=== PATIENT | female | born 2000 | race Caucasian/White ===

== ENCOUNTER 2020-11-01 12:06 | Outpatient (CLI) | payer OTHER, SELFPAY ==
[2020-11-06 09:21] LABS: TB Skin Test Site Left Arm
[2020-11-06 09:22] LABS: TB Skin Test Interpretation Unable to Read (Negative)
== END 2020-11-01 12:07 | disposition home or self-care (01) ==
LOC: CHSLAB 12:10
PROVIDERS: PCP Nurse Practitioner Family; Visit Provider Nurse Practitioner Family
DX: Z02.1 Encounter for pre-employment examination (principal)
CPT/HCPCS: 36415; 86580

== ENCOUNTER 2021-06-10 09:11 | Outpatient (CLI) | payer OTHER, SELFPAY ==
[2021-06-10 10:46] LABS: SARS-CoV-2 RNA PCR Positive (Negative)
== END 2021-06-10 09:12 | disposition home or self-care (01) ==
PROVIDERS: PCP Nurse Practitioner Family; Visit Provider Nurse Practitioner Family
DX: U07.1 COVID-19 (principal)
CPT/HCPCS: C9803; U0003; U0005

== ENCOUNTER 2022-07-04 14:20 | Emergency (ER) | payer OTHER, SELFPAY ==
[2022-07-04 14:33] VITALS: BP 181/123; PULSE 101; RESP 16; TEMP 36.6; O2SAT 100
--- NOTE | 2022-07-04 14:36 | ED.WOUNDLAC ---
HPI - Wound/Laceration General Chief Complaint: Wound/Laceration Stated Complaint: R HAND LACERATION Time Seen by Provider: 07/04/22 14:31 Source: patient Mode of arrival: ambulatory Limitations: no limitations History of Present Illness HPI narrative: Patient presents today complaining of a laceration to her right hand that was sustained 1 hour prior to arrival at work on her break while she was opening a can of tomatoes. She currently rates her pain 06/10. She is up-to-date on her tetanus vaccine. Denies numbness or tingling in her hand or fingers. Related Data Home Medications Medication Instructions Recorded Confirmed No Home Medications 07/04/22 07/04/22 Allergies Allergy/AdvReac Type Severity Reaction Status Date / Time No Known Allergies Allergy Verified 07/04/22 14:35 Review of Systems Review of Systems: CONSTITUTIONAL: Denies body aches, fever, chills, or sweats. EYES: Denies visual changes, redness, or discharge. ENT: Denies rhinorrhea, congestion, sore throat, or otalgia. CARDIOVASCULAR: Denies chest pain, palpitations, or edema. RESPIRATORY: Denies cough or dyspnea. GASTROINTESTINAL: Denies abdominal pain, nausea, vomiting, or diarrhea. GENITOURINARY: Denies dysuria or hematuria. SKIN: Denies rash, itching. + right hand laceration MUSCULOSKELETAL: Denies back pain, joint pain, or myalgia. NEUROLOGIC: Denies headache, numbness, tingling, or weakness. PSYCH: Denies depression or anxiety. [facility] Family History Family History Father Hypertension Father Hypertension Social History Social History Smoking status: Never smoker Alcohol intake: current Substance use: never Lack of Transportation: No Lack of Food: Never True Current Housing: I Have Housing Concerned About Future Housing: No Difficulty Paying Gas/Electric Bills: No Difficulty Paying for Meds: No Currently Unemployed: No Education: High School Diploma/GED Difficulty w/ Childcare or Family Care: No Comments At time of signature, I have reviewed and agree with nursing past medical, surgical, social and family history unless otherwise noted. Please see nursing chart for further information. There is no relevant family history pertinent to the presenting complaint Exam Narrative: GENERAL: Well-appearing, well-nourished, and in no acute distress. HEAD: Normocephalic, atraumatic. EYES: EOMI. No redness or drainage. Conjunctivae normal. ENT: Mucous membranes pink and moist. NECK: Normal AROM. CHEST: No respiratory distress. EXTREMITIES: Normal range of motion. No edema. SKIN: Warm, dry, no rash. Capillary refill normal. Normal skin turgor. 1.5 cm full-thickness linear laceration to the webbing between the right 1st and 2nd fingers. Distal sensation intact. Capillary refill normal. Full range of motion of all fingers. NEURO: No focal deficits. Alert and oriented x3. Gait steady. PSYCH: Normal affect. No signs of depression or anxiety. Course Course Level of Care: Express Care Visit Vital Signs Vital signs: Vital Signs Temperature 97.9 F 07/04/22 14:33 Pulse Rate 101 H 07/04/22 14:33 Respiratory Rate 16 07/04/22 14:33 Blood Pressure 181/123 H 07/04/22 14:33 Pulse Oximetry 100 07/04/22 14:33 Temperature 97.9 F 07/04/22 14:33 Pulse Rate 101 H 07/04/22 14:33 Respiratory Rate 16 07/04/22 14:33 Blood Pressure 140/89 07/04/22 14:58 Pulse Oximetry 100 07/04/22 14:33 Reviewed. Pt has been instructed to follow up with her PCP regarding her elevated blood pressure today. Procedures Laceration Laceration 1: Date: 07/04/22 Time: 14:39 Site: hand Side (If applicable): right Size (cm): 1.5 Description: linear Depth: simple, single layer Local Anesthetic: lidocaine 1% Amount of anesthesia
[2022-07-04] MEDS: LIDOCAINE HCL 1% LOCAL INJ 2 ML AMPUL INFILTRATE (14:39)
[2022-07-04 14:58] VITALS: BP 140/89
== END 2022-07-04 15:01 | disposition home or self-care (01) ==
PROVIDERS: Emergency Provider Nurse Practitioner; PCP Nurse Practitioner Family
DX: S61.411A Laceration without foreign body of right hand, initial encounter (principal); W26.8XXA Contact with other sharp object(s), not elsewhere classified, initial encounter
CPT/HCPCS: 12001; 99212; G0463

== ENCOUNTER 2024-08-18 17:27 | Emergency (ER) | payer OTHER, SELFPAY ==
--- NOTE | ~2024-08-18 | CT_ITS ---
CLINICAL INDICATION: Right lower quadrant pain COMPARISON: None. TECHNIQUE: Multiple contiguous axial images of the abdomen and pelvis were performed following the ad ministration of with 100 mL Omnipaque-350 intravenous contrast The dose-length product (DLP) was 1930.32 mGy-cm. Automated exposure control and iterative reconstruction technique were employed. FINDINGS/OBSERVATIONS: Visualized lower thorax: 5 mm calcified pulmonary nodule within the right lower lobe, findings suggesting prior granulomatous disease. The remainder of the bilateral lung bases are unremarkable. The heart is of normal size, without pericardial effusion. Small hiatal hernia is present. Liver: The liver demonstrates homogeneous enhancement and is not enlarged measuring 18 cm in longitudinal di mension. Gallbladder and biliary system: The gallbladder is only minimally distended, and otherwise unremarkable. Pancreas: The pancreas enhances homogeneously without ductal dilatation. Spleen: The spleen enhances homogeneously and is not enlarged measuring 8 cm in longitudinal dimension. Kidneys: The bilateral kidneys enhance symmetrically without hydronephrosis or renal calculi. Adrenal glands: Unremarkable. Gastrointestinal tract: Fecal stasis within the colon. Appendix: The appendix is of normal caliber (axial series, images 134 through 140). Vasculature: Unremarkable. Lymph nodes: No pathologically enlarged or morphologically suspicious lymph nodes within the retroperitoneum or at the root of the mesentery. Pelvic structures: The bladder is decompressed and otherwise unremarkable. The uterus is anteverted and retroflexed. Body wall and musculoskeletal: Small fat-containing umbilical hernia. No significant degenerative disease within the lower thoracic or lumbosacral spine. IMPRESSION: Normal appendix. Findings suggesting prior granulomatous disease. No acute pathology within the abdomen or pelvis, as detailed above. Reviewed, dictated and finalized at location A.
--- OUTSIDE RECORDS SUMMARY | 2024-08-18 17:30 | XMS_ITS | Referral Summary ---
Author Organization [address] Address [facility] [place] [address] Care Team Providers Care Abattoir Supervisor Name Role Phone ForrestGeorges logan Rose Primary Care Provider Allergies No known active allergies Medications lisinopril-hydro CHLOROthiazide (ZESTORETIC) 10-12.5 mg per tabletIndication s:hypertension Take 1 tablet by mouth daily Active Active Problems No known active problems Immunizations Immunization Administration Dates Next Due DTaP 03/15/2004,07/31/2000,06/24/2000 ,04/16/2000 HPV, Quadrivalent 01/03/2013 Hep B / HiB 07/31/2000 Hep B, Adolescent or Pediatric 10/30/2000,2000,04/16/2000 HiB 03/15/2004,10/30/2000,06/24/2000 ,04/16/2000 IPV 03/15/2004, 1,07/31/2000,06/24/2000,1 1999 MMR 03/07/2005,03/15/2004 Meningococcal MCV4P (Menactra) 01/03/2013 PPD TEST 09/02/2023 Varicella 03/15/2004 Social History Tobacco Use Types Packs/Day Years Used Date Smoking Tobacco: Never Assessed Comments Unknown Sex and Gender Information Value Date Recorded Sex Assigned at Not on file Legal Sex Female 5:48 PM CDT Gender Identity Not on file Sexual Orientation Not on file Last Filed Vital Signs Vital Sign Reading Time Taken Comments Blood Pressure 129/79 09/05/2023 10:10 AM CDT Pulse 81 09/05/2023 10:10 AM CDT Temperature 36.5 C (97.7 F) 09/05/2023 10:10 AM CDT Respiratory Rate 18 09/05/2023 10:1 0 AM CDT Oxygen Saturation 100% 09/05/2023 10: 10 AM CDT Inhaled Oxygen Concentration - - Weight 141.1 kg (311 lb 1.6 oz) 024 10:10 AM CDT Height 170.2 cm (5' 7 ) 09/05/2023 10:1 0 AM CDT Body Mass Index 48.73 09/05/2023 10:10 AM CDT Plan of Treatment Not on file Insurance [facility] Address: [facility] [address] [place] [address] Care Teams Abattoir Supervisor Relationship Specialty Start Date End Date Georges Dickey DO [address] [place] [address] PCP - General Family Medicine 09/02/23
--- OUTSIDE RECORDS SUMMARY | 2024-08-18 17:30 | XMS_ITS | Clinical Summary ---
Author Organization [address] Address [facility] [place] [address] Care Team Providers Care Sales Representative Electric Service Name Role Phone Georges Dickey Primary Care Provider Allergies No known active [...] (Menactra) 01/03/2013 PPD TEST 09/02/2023 Varicella 03/15/2004 Medical History Medical History Date Comments Hypertension Social History Tobacco Use Types Packs/Day Years Used Date Smoking Tobacco: Never Assessed Comments Unknown Sex and Gender Information Value Date Recorded Sex Assigned at Not on file Legal Sex Female 5:48 PM CDT Gender Identity Not on file Sexual Orientation Not on file Obstetrics History Last Filed Vital Signs Vital Sign Reading [...] 09/05/2023 10:10 AM CDT Plan of Treatment Health Maintenance Due Date Last Done Comments Cervical Cancer Screening 1999 Depression Screening 1999 Hepatitis C Screening 1999 Varicella Vaccines (2 of 2 - 2-dose childhood series) 06/07/2004 03/15/2004 DTaP/Tdap/Td Vaccine (5 - Tdap) 11/07/2010 03/15/2004, 07/31/2000, 06/24/2000, Additional history exists HPV Vaccines (2 - 2-dose series) 07/06/2013 01/03/2013 Regular Well Visit/Exam 18-64 11/07/2017 Influenza Vaccine (#1) 2024 Hepatitis B Screening Completed 10/30/2000 , 07/31/2000, 06/24/2000, Additional history exists Pneumococcal vaccine <65 Aged Out No longer eligible based on patient's age to [place] [address] Care Teams Sales Representative Electric Service Relationship Specialty Start Date End Date Georges Dickey DO [address] [place] [address] PCP - General Family Medicine 09/02/23
[2024-08-18 18:29] VITALS: BP 167/100; PULSE 90; RESP 16; TEMP 36.7; O2SAT 100
--- OUTSIDE RECORDS SUMMARY | 2024-08-18 22:09 | XMS_ITS | Referral Summary ---
Author Organization [address] Address [facility] [place] [address] Care Team Providers Care Brim Stretcher Name Role Phone ForrestGeorges logan Rose Primary [...] Plan of Treatment Not on file Insurance [facility] [employer] Care Teams Brim Stretcher Relationship Specialty Start Date End Date Georges Dickey DO [address] [place] [address] PCP - General Family Medicine 09/02/23
--- OUTSIDE RECORDS SUMMARY | 2024-08-18 22:09 | XMS_ITS | Clinical Summary ---
Author Organization [address] Address [facility] [place] [address] Care Team Providers Care Photo Graphics Librarian Name Role Phone Georges Dickey Primary Care [...] patient's age to complete this topic Insurance [facility] HMO/PPO Address: [facility] [address] [place] [address] Care Teams Photo Graphics Librarian Relationship Specialty Start Date End Date Georges Dickey DO [address] [place] [address] PCP - General Family Medicine 09/02/23
[2024-08-18 22:18] LABS: BEDSIDEPREGUCG Negative (Negative)
[2024-08-18 22:22] LABS: Basophils Percent Auto 0.4 % (0.2-1.2); Eosinophils Absolute Auto 0.3 K/mm3 (0-0.3); Eosinophils Percent Auto 3.5 % (0-4.4); Hematocrit 41.7 % (37.0-47.0); Hemoglobin 13.8 g/dL (12.0-15.0); Immature Granulocyte Absolute 0.03 K/mm3 (0.00-0.031); Immature Granulocyte Percent A 0.3 % (0-0.5); Lymphocytes Absolute Auto 3.41 K/mm3 (0.9-3.2); Lymphocytes Percent Auto 36.4 % (18.3-44.2); Mean Corpuscular HGB Conc 33.1 g/dl (32-36); Mean Corpuscular Hemoglobin 28.7 pg (26-34); Mean Corpuscular Volume 86.7 fl (80-100); Mean Platelet Volume 9.7 fl (7.4-10.4); Monocytes Absolute Auto 0.9 K/mm3 (0.1-0.6); Monocytes Percent Auto 9.2 % (2.6-8.5); Neutrophils Absolute Auto 4.7 K/mm3 (1.3-6.7); Neutrophils Percent Auto 50.2 % (45.5-73.1); Platelet Count Result 258 k/mm3 (150-375); Red Blood Count 4.81 M/mm3 (4.2-5.4); White Blood Count 9.4 K/mm3 (4.5-10.0)
[2024-08-18 22:31] LABS: Alanine Aminotransferase 27 U/L (6-35); Albumin Level 4.4 g/dL (3.5-5.1); Alkaline Phosphatase 62 U/L (38-126); Anion Gap 10 mmol/L (4-12); Aspartate Amino Transferase 26 U/L (14-36); Bilirubin,Total 0.2 mg/dL (0.2-1.3); Blood Urea Nitrogen 12 mg/dL (7-17); Calcium 9.4 mg/dL (8.4-10.2); Carbon Dioxide 24 mmol/L (22-30); Chloride 104 mmol/L (98-107); Estimated CRCL calculation 168 ml/min; Estimated Glomerular Filt Rate > 60; Glucose 99 mg/dL (65-110); Lipase 62 U/L (23-300); Potassium 3.8 mmol/L (3.4-5.0); Sodium 138 mmol/L (137-145)
--- NOTE | 2024-08-18 22:31 | ED_ITS ---
HPI - General Adult General Chief complaint: Abdominal Pain Stated complaint: RLQ pain, nausea-sent by Dr Dickey Time Seen by Provider: 08/18/24 21:42 History of Present Illness HPI narrative: Patient failed female who presents emergency department chief complaint of abdominal pain. Patient reports she started having pain in the right lower quadrant last 24 hours reports she has had some nausea denies vomiting denies diarrhea reports her last menstrual period was in the last month. The patient reports no prior abdominal surgery Related Data Allergies Allergy/AdvReac Type Severity Reaction Status Date / Time No Known Allergies Allergy Verified 08/18/24 17:28 Review of Systems 2 Review of Systems: A 10 system review of systems was completed on the patient and is negative except for what is stated in the HPI. Nursing and ancillary documentation was reviewed. [facility] Family History Family History Father Hypertension Father Hypertension Social History Social History Smoking status: Never smoker Alcohol intake: current Substance use: never Lack of Transportation: No Lack of Food: Never True Current Housing: I Have Housing Concerned About Future Housing: No Difficulty Paying Gas/Electric Bills: No Difficulty Paying for Meds: No Currently Unemployed: No Education: High School Diploma/GED Difficulty w/ Childcare or Family Care: No Exam 2 Narrative: GENERAL: Well-appearing, well-nourished, and in no acute distress. HEAD: Normocephalic, atraumatic. EYES: PERRLA and EOMI. ENT: Nares clear, no rhinorrhea or epistaxis. Mucous membranes moist. NECK: Supple. CHEST: Clear to auscultation. No respiratory distress. HEART: Regular rate and rhythm. No murmur heard. Normal peripheral pulses. ABDOMEN: Soft, mild tenderness to palpation right lower quadrant, nondistended, normal active bowel sounds. EXTREMITIES: Normal range of motion. No edema. SKIN: Warm, dry, no rash. NEURO: No focal deficits. Alert and oriented x3. PSYCH: Normal mood and affect. Course Vital Signs Vital signs: Vital Signs Temperature 36.7 C 08/18/24 18:29 Pulse Rate 90 08/18/24 18:29 Respiratory Rate 16 08/18/24 18:29 Blood Pressure 167/100 H 08/18/24 18:29 Pulse Oximetry 100 08/18/24 18:29 Temperature 36.7 C 08/18/24 18:29 Pulse Rate 90 08/18/24 18:29 Respiratory Rate 16 08/18/24 18:29 Blood Pressure 167/100 H 08/18/24 18:29 Pulse Oximetry 100 08/18/24 18:29 Medical Decision Making MDM Narrative Medical decision making narrative: Differential diagnosis includes intra-abdominal infection, UTI, pyelonephritis, appendicitis CT scan of the abdomen pelvis showed no acute abnormality laboratory studies were within normal limits urinalysis showed evidence UTI Vital Signs Vital Signs: Vital Signs Temperature 36.7 C 08/18/24 18:29 Pulse Rate 90 08/18/24 18:29 Respiratory Rate 16 08/18/24 18:29 Blood Pressure 167/100 H 08/18/24 18:29 Pulse Oximetry 100 08/18/24 18:29 Temperature 36.7 C 08/18/24 18:29 Pulse Rate 90 08/18/24 18:29 Respiratory Rate 16 08/18/24 18:29 Blood Pressure 167/100 H 08/18/24 18:29 Pulse Oximetry 100 08/18/24 18:29 Lab Data 08/18/24 22:05 08/18/24 22:05 Labs: Lab Results 08/18/24 08/18/24 Range/Units 22:05 22:16 WBC 9.4 (4.5-10.0) K/mm3 RBC 4.81 (4.2-5.4) M/mm3 Hgb 13.8 (12.0-15.0) g/dL Hct 41.7 (37.0-47.0) % MCV 86.7 (80-100) fl MCH 28.7 (26-34) pg MCHC 33.1 (32-36) g/dl RDW 13.0 (11.5-14.5) % Plt Count 258 (150-375) k/mm3 MPV 9.7 (7.4-10.4) fl Immature Gran % (Auto) 0.3 (0-0.5) % Neut % (Auto) 50.2 (45.5-73.1) % Lymph % (Auto) 36.4 (18.3-44.2) % [place] % (Auto) 9.2 H (2.6-8.5) % Eos % (Auto) 3.5 (0-4.4) % Baso % (Auto) 0.4 (0.2-1.2) % Lymph # (Auto) 3.41 H (0.9-3.2) K/mm3 Fountain # (Auto) 0.9 H (0.1-0.6) K/mm3 Eos # (Auto) 0.3 (0-0.3) K/mm3 Baso # (Auto) 0.0 (0.0-0.1) K/mm3 Abs Immat Gran (auto) 0.03 (0.00-0.031) K/mm3 Absolute Neuts (auto) 4.7 (1.3-6.7) K/mm3 Absolute Nucleated RBC 0.000 (0.0-0.012) K/mm3 Nucleated RBC % 0.0 (0.0-0.2) % Sodium 138 (137-145) mmol/L Potassium 3.8 (3.4-5.0) mmol/L Chloride 104 (98-107) mmol/L Carbon Dioxide 24 (22-30) mmol/L Anion Gap 10 (4-12) mmol/L BUN 12 (7-17) mg/dL Creatinine 0.66 L (0.7-1.0) mg/dL Estim Creat Clear Calc 168 ml/min Estimated GFR > 60 (59 - ) Glucose 99 (65-110) mg/dL Calcium 9.4 (8.4-10.2) mg/dL Total Bilirubin 0.2 (0.2-1.3) mg/dL AST 26 (14-36) U/L ALT 27 (6-35) U/L Alkaline Phosphatase 62 (38-126) U/L Total Protein 8.0 (6.3-8.2) g/dL Albumin 4.4 (3.5-5.1) g/dL Lipase 62 (23-300) U/L Urine Color Yellow (Yellow) Urine Appearance Clear (Clear) Urine pH 6.0 (5.0-9.0) Ur Specific [place] 1.013 (1.001-1.035) Urine Protein Negative (Negative) mg/dL Urine Glucose (UA) Negative (Negative) mg/dL Urine Ketones Negative (Negative) mg/dL Ur Blood (Man) Negative (Negative) Urine Nitrate Negative (Negative) Urine Bilirubin Negative (Negative) Urine Urobilinogen 0.2 (<2.0) mg/dL Leukocyte Esterase Rfl Negative (Negative) FLORENTINO/UL POC Urine HCG, Qual Negative (Negative) Discharge Plan Discharge Clinical Impression: Abdominal pain Patient Disposition: Home, Self-Care Condition: Stable Instructions: Antibiotic Form, Abdominal Pain (ED) Patient Language: Moldovan Prescriptions: No Action lisinopril-hydrochlorothiazide 20-12.5 mg tablet See Rx Instructions .ROUTE .COMPLEX Qty: 90 0RF Dose Instruction: TAKE ONE TABLET BY MOUTH EVERY MORNING Rx Instructions: TAKE ONE TABLET BY MOUTH EVERY MORNING Follow-up/Referrals: Georges Dickey DO [Primary Care Provider] - Time of Disposition: 23:25
[2024-08-18 22:33] LABS: Add Urine Microscopic? NO; Appearance Urine Clear (Clear); Bilirubin Urine Negative (Negative); Blood Urine Negative (Negative); Color Urine Yellow (Yellow); Glucose Urine UA Negative (Negative); Ketones Urine Negative (Negative); Leukocyte Esterase Ur Negative LEU/UL (Negative); Nitrate Urine Negative (Negative); Protein Urine Negative (Negative); Specific Grav Ur 1.013 (1.001-1.035); Urobilinogen Urine 0.2 mg/dL (<2.0)
[2024-08-18 23:33] VITALS: BP 164/108; PULSE 87; RESP 15; O2SAT 100
== END 2024-08-18 23:34 | disposition home or self-care (01) ==
PROVIDERS: Emergency Provider Emergency Medicine; PCP Family Medicine
DX: R10.31 Right lower quadrant pain (principal)
CPT/HCPCS: 36415; 74177; 80053; 81003; 81025; 83690; 85025; 99284; Q9967